=== PATIENT | female | born 1995 | race Caucasian/White ===

== ENCOUNTER 2016-07-29 07:45 | Emergency (ER) | payer OTHER ==
[2016-07-29] MEDS ORDERED: Lidocaine 1% 5ml(IM or SUTURE)(PAIN CLINIC) ONE (07:56)
[2016-07-29] MEDS ORDERED: Lidocaine 1% 5ml(IM or SUTURE)(PAIN CLINIC) IJ ONE (07:56)
--- NOTE | 2016-07-29 08:14 | ED Physician Documentation ---
Upper Extremity Injury - HISTORIAN Historian: patient - HPI Stated Complaint: Finger Laceration Chief Complaint: Upper Extremity Injury Onset: just prior to arrival Where: home Duration: persistent since Context: other (cut finger on glass) Associated Symptoms: denies: tingling, numbness distally Modifying Factors: none Further Comments: yes (patient lost her balance and fell on a glass and sustained a laceration to the right 4th diget.) - ROS CONST: no problems - PAST HX Past History: none, Rt handed Allergies/Adverse Reactions: Allergies Allergy/AdvReac Type Severity Reaction Status Date / Time codeine Allergy Intermediate Rash Verified 07/29/16 07:55 amoxicillin AdvReac Rash Verified 07/29/16 07:55 Home Medications: Ambulatory Orders Medication Instructions Recorded NK [NK] 07/29/16 - SOCIAL HX Smoking History: cigarettes (05/28 ppd) Alcohol Use: none Drug Use: none - FAMILY HX Family History: no significant history - VITAL SIGNS Vital Signs: Vital Signs Temp Pulse Resp BP Pulse Ox 97.1 F L 73 18 103/53 99 07/29/16 07:45 07/29/16 08:18 07/29/16 08:18 07/29/16 08:18 07/29/16 08:18 - REVIEWED ASSESSMENTS Nursing Assessment Reviewed: Yes Vitals Reviewed: Yes Procedures Wound Location: upper extremity (right 4th diget) Wound's Depth, Shape: superficial, linear Anesthesia: 1% Lidocaine Suture Size/Type: 5:0 Number of Sutures: 4 Layer Closure?: No ED Results Lab/Radiology - Orders Orders: ED Orders Category Date Time Status Lidocaine 1% 5ml(IM or SUTURE) [Xylocaine] Med 07/29/16 07:56 Discontinued 50 mg .ROUTE .STK-MED ONE Lidocaine 1% 5ml(IM or SUTURE) [Xylocaine] Med 07/29/16 07:56 Discontinued 50 mg IJ NOW ONE Upper Extremity Injury Physic - Physical Exam General Appearance: no acute distress, alert Hand: laceration (1.5cm laceration to the lateral 4th diget). No: limited ROM Wrist: normal inspection, non-tender, no evidence of injury Elbow/Forearm: normal inspection, non-tender, no evidence of injury Neuro/Vascular/Tendon: no vascular compromise, motor nml, sensation nml. No: tendon injury Skin: warm,dry Resp/CVS: chest non-tender, breath sounds nml, heart sounds nml, no resp. distress, lungs clear Abdomen: non-tender Discharge Clincal Impression: Laceration of right ring finger Referrals: Primary Doctor,No [Primary Care Provider] - 2 Days Additional Instructions: Keep area clean and dry, watch for any signs of infection. Have sutures removed in 7 days. Home Medications: Ambulatory Orders NK [NK] 07/29/16 Condition: Stable Disposition: 01 HOME, SELF-CARE Decision to Admit: NO Date of Decison to Admit: 07/29/16 Decision Time: 08:13
[2016-07-29 08:19] VITALS: BP 103/53
== END 2016-07-29 08:18 | disposition home or self-care (01) ==
LOC: ED 07:45
DX: S61.214A Laceration without foreign body of right ring finger without damage to nail, initial encounter (principal); W01.10XA Fall on same level from slipping, tripping and stumbling with subsequent striking against unspecified object, initial encounter; Y93.9 Activity, unspecified; Y99.9 Unspecified external cause status
CPT/HCPCS: 12001; 99283

== ENCOUNTER 2017-03-03 11:58 | Emergency (ER) | payer OTHER ==
[2017-03-03 12:24] VITALS: BP 108/70
--- NOTE | 2017-03-03 12:45 | ED Physician Documentation ---
Skin Rash - HISTORIAN Historian: patient - HPI Stated Complaint: Abcess right armpit Chief Complaint: Skin Rash Additional Information: tender inderated areas R axilla. firm, not fluculent, with erythema tender. Onset: days ago Timing: still present Duration: persistent since Location: R axillary Quality: painful Identified Cause?: No Context: Medication Exposure: none Context: Food Exposure: none Further Comments: no - ROS CONST: none CVS/RESP: none EYES/ENT: none GI/: none MS/SKIN/LYMPH: none NEURO/PSYCH: none - PAST HX Past History: none Other History: none Surgeries/Procedures: No Allergies/Adverse Reactions: Allergies Allergy/AdvReac Type Severity Reaction Status Date / Time codeine Allergy Intermediate Rash Verified 03/03/17 12:24 amoxicillin AdvReac Rash Verified 03/03/17 12:24 Home Medications: Ambulatory Orders Medication Instructions Recorded Albuterol Sulfate [Proair HFA] 2 puff INH QID PRN 03/03/17 Cetirizine HCl [Zyrtec] 10 mg PO DAILY 03/03/17 Mometasone Furoate [Nasonex] 1 spray INH BID 03/03/17 Naproxen Na-Diphenhydramin HCl 2 tab PO BID 03/03/17 [Aleve Pm Caplet] Sertraline HCl [Zoloft] 50 mg PO DAILY 03/03/17 - SOCIAL HX Smoking History: non-smoker Alcohol Use: none Drug Use: none - FAMILY HX Family History: none - VITAL SIGNS Vital Signs: Vital Signs Temp Pulse Resp BP Pulse Ox 100.8 F H 70 16 108/70 98 03/03/17 12:05 03/03/17 12:05 03/03/17 12:05 03/03/17 12:05 03/03/17 12:05 - REVIEWED ASSESSMENTS Nursing Assessment Reviewed: Yes Vitals Reviewed: Yes Skin Rash Physical Exam - EXAM General Appearance: no acute distress, alert Skin: warm,dry Location: other (Right axilla) Character: erythematous. No: vesicular, bullous Symptoms: warmth, tenderness, swelling, induration Extremities: non-tender Respiratory: no resp distress Abdomen: non-tender Neuro/Psych: oriented x3, mood/affect nml Discharge Clincal Impression: Cellulitis of axilla, right Referrals: Primary Doctor,No [Primary Care Provider] - 2 Days Condition: Good Disposition: 01 HOME, SELF-CARE Decision to Admit: NO Date of Decison to Admit: 03/03/17 Decision Time: 12:47
== END 2017-03-03 12:54 | disposition home or self-care (01) ==
LOC: ED 11:58
DX: L03.111 Cellulitis of right axilla (principal)
CPT/HCPCS: 99283